=== PATIENT | female | born 1995 | race Two or more races ===

== ENCOUNTER 2019-10-31 19:25 | Emergency (ER) | payer OTHER ==
[~2019-10-31] VITALS: Ht 160 cm; Wt 59.0 kg
[2019-10-31] MEDS ORDERED: MISO200T PO (19:59)
[2019-10-31] MEDS ORDERED: IV NORMAL SALINE 1000ML BAG 1,000 ML IV ONE ×2 (20:00→22:30)
[2019-10-31 20:01] LABS: BASO % 0 % (0-3); EOS % 0 % (0-3); HEMATOCRIT 33.7 % (36.0-47.0); HEMOGLOBIN 11.8 g/dL (12.0-15.5); LYMPH # 1.9 x10^3/uL (1.0-4.8); LYMPH % 16 % (24-48); MEAN CORPUSCULAR HEMOGLOBIN 31 pg (25-35); MEAN CORPUSCULAR HGB CONC 35 g/dL (31-37); MEAN CORPUSCULAR VOLUME 89 fL (79-100); MONO # 0.4 x10^3/uL (0.0-1.1); MONO % 3 % (0-9); NEUT % 81 % (31-73); PLATELET COUNT 331 x10^3/uL (140-400); RED BLOOD COUNT 3.79 x10^6/uL (3.50-5.40); RED CELL DISTRIBUTION WIDTH 12.1 % (11.5-14.5); WHITE BLOOD COUNT 12.3 x10^3/uL (4.0-11.0)
--- NOTE | 2019-10-31 20:06 | PHYS DOC ---
General Adult EDM: Chief Complaint: VAGINAL BLEEDING HPI: HPI: Patient is a 24 year old female who presents with vaginal bleeding. Patient seen in the clinic earlier this week and at that time she had an ultrasound done which showed demise. She has been receiving Cytotec daily since Monday. She had some minimal spotting throughout the week. Today she started having heavy vaginal bleeding. Over the last 3 hours she has been soaking through 2 pads an hour. She states that she has been having a lot of dizziness and feeling like she is going to pass out. They do not believe they have seen any tissue passage. She has some mild abdominal pain right now. She states when her abdomen starts to cramp she gets severe pain. Review of Systems: Review of Systems: General: Denies fever, chills, sweats, fatigue Eyes: Denies drainage, blurred vision, eye redness HENT: Denies rhinorrhea, sore throat, earache Respiratory: Denies cough, shortness of breath, wheezing Cardiac: Denies edema, palpitations, chest pain GI: Reports nausea, abdominal cramping, vaginal bleeding MSK: Denies back pain, neck pain Skin: Denies rash, jaundice Neuro: Denies headache, dizziness reports lightheadedness Psychiatric: Denies SI/HI Heart Score: Risk Factors: Risk Factors: DM, Current or recent (<one month) smoker, HTN, HLP, family history of CAD, obesity. Risk Scores: Score 0 - 3: 2.5% MACE over next 6 weeks - Discharge Home Score 4 - 6: 20.3% MACE over next 6 weeks - Admit for Clinical Observation Score 7 - 10: 72.7% MACE over next 6 weeks - Early Invasive Strategies Current Medications: Current Medications Medications (Trade) Dose Ordered Sig/Stephanie Start Time Stop Time Status Last Admin Dose Admin Sodium Chloride 1,000 ml @ 1,000 mls/hr 1X ONCE 10/31/19 20:00 10/31/19 20:59 10/31/19 20:01 1,000 MLS/HR Allergies: Allergies: Allergies Coded Allergies Type Severity Reaction Last Updated Verified No Known Drug Allergies 10/31/19 No Physical Exam: PE: General: Awake, alert, NAD. Well Nourished, well hydrated. Cooperative HEENT: Atraumatic, EOMI, PERRL, airway patent, moist oral mucosa Neck: Supple, trachea midline Respiratory: CTA bilaterally, normal effort, no wheezing/crackles CV: Tachycardia, no murmur, cap refill <2 GI: Soft, nondistended, nontender, no masses MSK: No obvious deformities Skin: Warm, dry, intact Neuro: A&O x3, speech NL, sensory and motor grossly intact, no focal deficits Psych: Normal affect, normal mood, not suicidal or homicidal Current Patient Data: Labs: Laboratory Tests Test 10/31/19 19:45 White Blood Count 12.3 x10^3/uL (4.0-11.0) H Red Blood Count 3.79 x10^6/uL (3.50-5.40) Hemoglobin 11.8 g/dL (12.0-15.5) L Hematocrit 33.7 % (36.0-47.0) L Mean Corpuscular Volume 89 fL (79-100) Mean Corpuscular Hemoglobin 31 pg (25-35) Mean Corpuscular Hemoglobin Concent 35 g/dL (31-37) Red Cell Distribution Width 12.1 % (11.5-14.5) Platelet Count 331 x10^3/uL (140-400) Neutrophils (%) (Auto) 81 % (31-73) H Lymphocytes (%) (Auto) 16 % (24-48) L Monocytes (%) (Auto) 3 % (0-9) Eosinophils (%) (Auto) 0 % (0-3) Basophils (%) (Auto) 0 % (0-3) Neutrophils # (Auto) 10.0 x10^3/uL (1.8-7.7) H Lymphocytes # (Auto) 1.9 x10^3/uL (1.0-4.8) Monocytes # (Auto) 0.4 x10^3/uL (0.0-1.1) Eosinophils # (Auto) 0.0 x10^3/uL (0.0-0.7) Basophils # (Auto) 0.0 x10^3/uL (0.0-0.2) Laboratory Tests 10/31/19 19:45 EKG: EKG: [] Radiology/Procedures: Radiology/Procedures: [] Course & Med Decision Making: Course & Med Decision Making Pertinent Labs and Imaging studies reviewed. (See chart for details) Patient is a 24-year-old female presents to the emergency room with significant vaginal bleeding after taking Cytotec for demise. Patient had some mild tachycardia upon arrival to the emergency room and is symptomatic. It is possible that she is having excessive bleeding. Ultrasound will be done to look for retained products. Patient was given fluids and labs were ordered. 2199 Dr Bell called and discussed ultrasound and vitals. Plan for D&C. Repeat CBC. Patient to be admitted for D&C. Dragon Disclaimer: Roman Disclaimer: This electronic medical record was generated, in whole or in part, using a voice recognition dictation system. Departure Departure Impression: Primary Impression: Retained products of conception with hemorrhage Disposition: ADMITTED INPATIENT Condition: STABLE Referrals: UNKNOWN PCP NAME (PCP) Justicifation of Admission Dx: Justifications for Admission: Justification of Admission Dx: Yes YISSEL OLIVEIRA MD Oct 31, 2019 20:06
--- NOTE | 2019-10-31 21:47 | RAD ---
Exam: Ultrasound OB less than 14 weeks Indication: Vaginal bleeding Technique: Real-time grayscale and color Doppler images of the pelvis were obtained by the department meat grinder. Comparisons: None FINDINGS: Uterus measures 10.9 x 5.8 x 4.8 cm. At the lower uterine segment/cervix there is a abnormal appearing gestational sac with internal yolk sac. There is a 5 mm pole with no cardiac activity seen. Right ovary measures 3.7 x 1.9 x 2.1 cm. Vascular flow identified within left ovary. Left ovary is not visualized. No free fluid. IMPRESSION: Abnormal appearing gestational sac with yolk sac and pole seen in the lower uterine segment without cardiac activity concerning for demise. Recommend correlation with serial beta hCG measurements and short-term follow-up ultrasound. Electronically signed by: Sharri Weiner MD (10/31/2019 9:44 PM) [id number]
[2019-10-31 22:46] LABS: HEMATOCRIT 26.3 % (36.0-47.0); HEMOGLOBIN 9.4 g/dL (12.0-15.5); RED BLOOD COUNT 2.95 x10^6/uL (3.50-5.40); RED CELL DISTRIBUTION WIDTH 12.2 % (11.5-14.5); WHITE BLOOD COUNT 10.3 x10^3/uL (4.0-11.0)
[2019-10-31] MEDS ORDERED: PROPOFOL 10 MG/ML (20ML) VIAL. IV ONE (23:10)
[2019-10-31] MEDS ORDERED: fentaNYL PF VIAL 100 MCG/2 ML VIAL ONE (23:10)
[2019-10-31] MEDS ORDERED: ONDANSETRON PF 4 MG/2 ML VIAL. ONE (23:11)
[2019-10-31] MEDS ORDERED: DEXAMETHASONE SOD PHOS 4 MG/ML VIAL ONE (23:11)
[2019-10-31] MEDS ORDERED: SEVOFLURANE 16 TO 30 MINUTES. IH ONE (23:11)
[2019-10-31] MEDS ORDERED: LIDOCAINE 2% PF 5 ML VIAL. ONE (23:11)
[2019-10-31] MEDS ORDERED: IV RINGERS,LACTATED 1000ML 1,000 ML IV SCH (23:27)
[2019-10-31] MEDS ORDERED: PROCHLORPERAZINE 10 MG/2 ML VIAL. IV PRN (23:30)
[2019-10-31] MEDS ORDERED: fentaNYL PF VIAL 100 MCG/2 ML VIAL IV PRN ×2 (23:30)
[2019-10-31] MEDS ORDERED: HYDROmorphone 2 MG/ML VIAL IV PRN (23:30)
[2019-10-31] MEDS ORDERED: ONDANSETRON PF 4 MG/2 ML VIAL. IV PRN (23:30)
[2019-10-31] MEDS ORDERED: MORPHINE SULFATE 2 MG/ML VIAL. IV PRN (23:30)
[2019-10-31] MEDS ORDERED: ceFAZolin SODIUM IV Push 1 GM VIAL. IVP ONE (23:43)
[2019-11-01] MEDS ORDERED: IV DEXTROSE 5%-LACT RINGERS 1,000 ML IV SCH
[2019-11-01] MEDS ORDERED: OXYTOCIN 10 UNIT/ML VIAL. ONE (00:05)
--- NOTE | 2019-11-01 00:19 | PDOC ---
GENERAL General: 24yrs old White Female Previous 8 weeks at this time received Cytotec for demise came into ER with history of Vaginal bleeding for two days and now increased amount of bleeding and Passing clots. VITAL SIGNS Vital Signs/I&O: Vital Signs Date Time Temp Pulse Resp B/P (MAP) Pulse Ox O2 Delivery O2 Flow Rate FiO2 10/31/19 19:32 98.0 132 20 100/62 (75) 99 Room Air 98.0 I & O 10/31/19 10/31/19 11/01/19 15:00 23:00 07:00 Intake Total 1000 ml Balance 1000 ml ALLERGIES Allergies: Allergies Coded Allergies Type Severity Reaction Last Updated Verified No Known Drug Allergies 10/31/19 No MEDS Medications: Current Medications Medications (Trade) Dose Ordered Sig/Stephanie Route PRN Reason Start Time Stop Time Status Last Admin Dose Admin Sodium Chloride 1,000 ml @ 1,000 mls/hr 1X ONCE IV 10/31/19 20:00 10/31/19 20:59 DC 10/31/19 20:01 Sodium Chloride 1,000 ml @ 1,000 mls/hr 1X ONCE IV 10/31/19 22:30 10/31/19 23:29 DC 10/31/19 22:46 LAB Lab: Laboratory Tests Test 10/31/19 19:45 10/31/19 22:40 10/31/19 23:00 White Blood Count 12.3 x10^3/uL (4.0-11.0) H 10.3 x10^3/uL (4.0-11.0) Red Blood Count 3.79 x10^6/uL (3.50-5.40) 2.95 x10^6/uL (3.50-5.40) L Hemoglobin 11.8 g/dL (12.0-15.5) L 9.4 g/dL (12.0-15.5) L Hematocrit 33.7 % (36.0-47.0) L 26.3 % (36.0-47.0) L Mean Corpuscular Volume 89 fL (79-100) 89 fL (79-100) Mean Corpuscular Hemoglobin 31 pg (25-35) 32 pg (25-35) Mean Corpuscular Hemoglobin Concent 35 g/dL (31-37) 36 g/dL (31-37) Red Cell Distribution Width 12.1 % (11.5-14.5) 12.2 % (11.5-14.5) Platelet Count 331 x10^3/uL (140-400) 251 x10^3/uL (140-400) Neutrophils (%) (Auto) 81 % (31-73) H Lymphocytes (%) (Auto) 16 % (24-48) L Monocytes (%) (Auto) 3 % (0-9) Eosinophils (%) (Auto) 0 % (0-3) Basophils (%) (Auto) 0 % (0-3) Neutrophils # (Auto) 10.0 x10^3/uL (1.8-7.7) H Lymphocytes # (Auto) 1.9 x10^3/uL (1.0-4.8) Monocytes # (Auto) 0.4 x10^3/uL (0.0-1.1) Eosinophils # (Auto) 0.0 x10^3/uL (0.0-0.7) Basophils # (Auto) 0.0 x10^3/uL (0.0-0.2) Maternal Serum HCG Beta Subunit 3471 mIU/mL (0-5) H SARS-CoV-2 Antigen (Rapid) Negative (NEGATIVE) Laboratory Tests 10/31/19 19:45 10/31/19 22:40 ASSESSMENT & PLAN A&P Under GA D&C Suction Curettage done.EBL 100cc. Patient stable after Surgery. HB in Recovery room. Patient can go home and can see her in office in 2 weeks. Justicifation of Admission Dx: Justifications for Admission: Justification of Admission Dx: Yes PATRICIA JACOB MD Nov 01, 2019 00:19
[2019-11-01] MEDS ORDERED: TRAM50TA PO (00:30)
[2019-11-01 00:36] LABS: HEMATOCRIT 22.6 % (36.0-47.0); HEMOGLOBIN 7.8 g/dL (12.0-15.5); RED BLOOD COUNT 2.5 x10^6/uL (3.50-5.40); RED CELL DISTRIBUTION WIDTH 11.9 % (11.5-14.5); WHITE BLOOD COUNT 8.5 x10^3/uL (4.0-11.0)
[2019-11-01] MEDS ORDERED: traMADol 50 MG TABLET PO ONE (00:45)
--- NOTE | 2019-11-01 00:51 | OP ---
DATE OF SURGERY: 10/31/2019 PREOPERATIVE DIAGNOSIS: Incomplete . POSTOPERATIVE DIAGNOSIS: Incomplete . OPERATION PERFORMED: D and C, suction curettage. DESCRIPTION OF PROCEDURE: The patient was taken to the operating room under general anesthesia. She was placed in dorsal lithotomy position. Perineum was prepped and draped in the usual manner. Weighted speculum inserted in the posterior vaginal wall. Anterior lip of the cervix held with a tenaculum. A lot of blood clots in the vagina is removed with ring forceps. After this, the uterine sound is used to measure the length of the uterine cavity and the cervix was already dilated. Medium-sized curette was used to curette the endometrial cavity. Also, size 8 suction tip cannula was used and suctioning of the uterus was done without any problem. All the products of conception sent for histopathological examination. She did receive 20 units of Pitocin in the IV bottle of fluid during the time of the D and C. At the end of the curettage, speculum tenaculum was removed. The patient was sent to the recovery room in good condition. No complications encountered at the time of the procedure. Estimated blood loss about 100 mL. Postoperative condition is stable. She will get a hemoglobin and hematocrit in the recovery room and the patient is to go home and she will be seen in the office in 2 weeks for postoperative care and treatment. PATRICIA JACOB MD DR: PENNY/ananth JOB#: [id number] / [id number]
[2019-11-01 01:05] VITALS: BP 86/56
--- NOTE | 2019-11-04 18:06 | PATHOLOGY ---
[facility] Accession Number: [id number] . 01 Material submitted: . product of conception - PRODUCTS OF CONCEPTION . 01 Clinical history: . Incomplete AB . 02 Diagnosis: Uterine contents, suction D and C: - Products of conception, comprised of immature chorionic villi showing extensive intervillous hemorrhage, and segments of decidual tissue showing focal hemorrhage and acute inflammation. (JPM/db; 11/04/2019) LBQ 11/04/2019 1552 Local . 02 Electronically signed: . Juan Browne MD, Pathologist NPI- [id number] . 01 Gross description: . The specimen is received in formalin, labeled "Grace Munoz, products of conception". Received is a large amount of blood coagulum measuring 12.8 x 10.5 x 4.6 cm in aggregate dimensions. Sectioning through the blood coagulum reveals an intact gestational sac measuring 3.2 x 2.5 x 2.2 cm. Opening the embryonic sac reveals a yolk sac measuring 0.3 cm. Outdoor Re[employer] Specialist sections of soft tissue are submitted in cassettes A1 through A3. (CAA; 11/01/2019) QAC/QAC 11/01/2019 1843 Local . 02 Pathologist provided ICD-10: O03.4 . 02 CPT . 033371 Performed at: 01 [facility] [address], [place], [place] [id number] MD Ray Hernandez MD Phone: [phone] Performed at: 02 [facility] [address] [place], [place] [id number] MD Juan Browne MD Phone: [phone]
== END 2019-10-31 23:39 | disposition other institution (70) ==
LOC: ER 19:25 → 3 NORTH 23:05 → UNDOADMIN 23:05
DX: O72.2 Delayed and secondary postpartum hemorrhage (principal); R42 Dizziness and giddiness; Z20.828 Contact with and (suspected) exposure to other viral communicable diseases; R00.0 Tachycardia, unspecified; R10.9 Unspecified abdominal pain
CPT/HCPCS: 36415; 59812; 76801; 76817; 84702; 85025; 85027; 86850; 86900; 86901; 87426; 88305; 96360; 96361; 99285; A7015; J0690; J1100; J2704; J7030; J7120; U0003; J2405; J2590; J3010; G0378